=== PATIENT | female | born 1990 | race Caucasian/White ===

== ENCOUNTER 2023-01-10 14:35 | Emergency (ER) | payer BC, SELFPAY ==
[2023-01-10] VITALS (12 sets, daily range): BP systolic 160–209; BP diastolic 117–143; PULSE 83–99; RESP 13–35; TEMP 36.9; O2SAT 96–100
--- NOTE | ~2023-01-10 | XR_ITS ---
EXAMINATION: XR chest 1V portable INDICATION: Hypertension TECHNIQUE: Portable AP chest at 1532 hours COMPARISON: None available FINDINGS: The lungs are free of acute opacities. No pleural effusion or pneumothorax. The cardiomedia stinal silhouette is normal. IMPRESSION: 1. No acute cardiopulmonary abnormality. Reviewed, dictated and finalized at location B.
--- NOTE | 2023-01-10 14:44 | ECG_ITS ---
Measurements Intervals [place] Rate: 98 P: 40 TN: 132 QRS: -7 QRSD: 80 T: 30 QT: 317 QTc: 406 Interpretive Statements SINUS RHYTHM VOLTAGE CRITERIA FOR LVH [MEETS CRITERIA IN ONE OF: R(aVL), S(V1), R(V5), R(V5/V6)+S(V1)] BORDERLINE ECG NO PREVIOUS ECG AVAILABLE FOR COMPARISON Electronically Signed On 01-10-2023 16:12:15 CDT by Isra Rock M.D.
--- NOTE | 2023-01-10 15:09 | ED.GENADULT ---
HPI - General Adult General Chief complaint: Recheck/Abnormal Lab/Rx <Jerry Simons PA-C - Last Filed: 01/10/23 18:50> Stated complaint: htn <SAM Gale Last Filed: 01/10/23 18:50> Time Seen by Provider: 01/10/23 14:55 <SAM Gale Last Filed: 01/10/23 18:50> Source: patient <SAM Gale Last Filed: 01/10/23 18:50> Mode of arrival: ambulatory <SAM Gale Last Filed: 01/10/23 18:50> Limitations: no limitations <SAM Gale Last Filed: 01/10/23 18:50> History of Present Illness HPI narrative: This is a 32-year-old female who presents to the ED for concern of high blood pressure after being referred by her psychiatric provider today. She was there to get assessed for ADHD and they noticed a high blood pressure and a lesion to the eye so they sent her here. Patient states that she has some generalized anxiety going on but denies any acute vision changes, chest pain, shortness of breath, cough. Denies double vision. She reports a little bit of a headache but it feels like her normal headaches that she gets on occasion. Denies any syncope, head injury, numbness, weakness. <Jerry Simons PA-C - Last Filed: 01/10/23 18:50> Related Data Home medications: Home Medications Medication Instructions Recorded Confirmed No Home Medications 01/10/23 01/10/23 <SAM Gale Last Filed: 01/10/23 18:50> Allergies/adverse reactions: Allergies Allergy/AdvReac Type Severity Reaction Status Date / Time No Known Allergies Allergy Verified 01/10/23 16:49 <SAM Gale Last Filed: 01/10/23 18:50> Review of Systems Review of Systems: All systems as dictated in HPI <SAM Gale Last Filed: 01/10/23 18:50> Exam Narrative: GENERAL: Well-appearing, well-nourished, and in no acute distress. HEAD: Normocephalic, atraumatic. EYES: The right eye does have a very small 3 mm hemorrhagic/erythematous appearing lesion to the sclera. Funduscopic exam of the right eye does not reveal any obvious retinopathy or optic disc pathology Left eye is benign. PERRLA and EOMI. ENT: Nares clear, no rhinorrhea or epistaxis. Mucous membranes moist. Oropharynx without tonsillar hypertrophy exudate or other lesions. NECK: Supple. No adenopathy or masses. CHEST: No respiratory distress. Clear to auscultation. No wheezes rales or rhonchi HEART: Regular rate and rhythm. No murmur heard. Normal peripheral pulses. ABDOMEN: Soft, nontender, nondistended, normal active bowel sounds. MSK: Normal range of motion. No edema. SKIN: Warm, dry, no rash. NEURO: Alert and oriented x3. No focal deficits. PSYCH: Normal mood and affect. 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 <Yo Alves MD - Last Filed: 01/10/23 21:47> Vital Signs Vital signs: Vital Signs Temperature 98.4 F 01/10/23 14:37 Pulse Rate 98 01/10/23 14:37 Respiratory Rate 16 01/10/23 14:37 Blood Pressure 182/131 H 01/10/23 14:37 Pulse Oximetry 100 01/10/23 14:37 Oxygen Delivery Room Air 01/10/23 14:37 Temperature 98.4 F 01/10/23 14:37 Pulse Rate 88 01/10/23 17:31 Respiratory Rate 25 H 01/10/23 17:31 Blood Pressure 167/122 H 01/10/23 17:31 Pulse Oximetry 98 01/10/23 17:31 Oxygen Delivery Room Air 01/10/23 14:37 <Jerry Simons PA-C - Last Filed: 01/10/23 18:50> Vital Signs Temperature 98.4 F 01/10/23 14:37 Pulse Rate 98 01/10/23 14:37 Respiratory Rate 16 01/10/23 14:37 Blood Pressure 182/131 H 01/10/23 14:37 Pulse Oximetry 100 01/10/23 14:37 Oxygen Delivery Room Air 01/10/23 14:37 Temperature 98.4 F 01/10/23 14:37 Pulse Rate 88 01/10/23 17:31 Respiratory
[2023-01-10 15:20] LABS: Basophils Percent Auto 0.4 % (0.2-1.2); Eosinophils Absolute Auto 0.1 K/mm3 (0-0.3); Eosinophils Percent Auto 1.4 % (0-4.4); Hematocrit 44.6 % (37.0-47.0); Hemoglobin 14.9 g/dL (12.0-15.0); Immature Granulocyte Absolute 0.05 K/mm3 (0.00-0.031); Immature Granulocyte Percent A 0.5 % (0-0.5); Lymphocytes Absolute Auto 2.81 K/mm3 (0.9-3.2); Lymphocytes Percent Auto 29.9 % (18.3-44.2); Mean Corpuscular HGB Conc 33.4 g/dl (32-36); Mean Corpuscular Hemoglobin 27.9 pg (26-34); Mean Corpuscular Volume 83.4 fl (80-100); Mean Platelet Volume 9.8 fl (7.4-10.4); Monocytes Absolute Auto 0.6 K/mm3 (0.1-0.6); Monocytes Percent Auto 6.8 % (2.6-8.5); Neutrophils Absolute Auto 5.7 K/mm3 (1.3-6.7); Platelet Count Result 291 k/mm3 (150-375); Red Blood Count 5.35 M/mm3 (4.2-5.4); Red Cell Distribution Width 13.1 % (11.5-14.5); White Blood Count 9.4 K/mm3 (4.5-10.0)
[2023-01-10 15:32] LABS: Alanine Aminotransferase 16 U/L (6-35); Albumin Level 4.8 g/dL (3.5-5.1); Alkaline Phosphatase 57 U/L (38-126); Anion Gap 9 mmol/L (8-16); Aspartate Amino Transferase 21 U/L (14-36); Bilirubin,Total 0.7 mg/dL (0.2-1.3); Blood Urea Nitrogen 11 mg/dL (7-17); Calcium 9.7 mg/dL (8.4-10.2); Carbon Dioxide 24 mmol/L (22-30); Chloride 103 mmol/L (98-107); Estimated CRCL calculation 101 ml/min; Estimated Glomerular Filt Rate > 60; Glucose 87 mg/dL (65-110); Lipase 56 U/L (23-300); Potassium 3.9 mmol/L (3.4-5.0); Sodium 136 mmol/L (137-145)
[2023-01-10 15:36] LABS: Partial Thromboplastin Time 28.1 SECONDS (22.3-36.8)
[2023-01-10 15:43] LABS: Troponin I < 0.012 ng/mL (0.000-0.034)
[2023-01-10] MEDS: LABETALOL HCL INJ 100 MG/20 ML VIAL 20 MG IV PUSH (15:58)
[2023-01-10] MEDS: Please add drug allergy info to patient profile. 1 EACH XX (15:58)
== END 2023-01-10 17:53 | disposition home or self-care (01) ==
PROVIDERS: Emergency Medicine; Emergency Provider Physician Assistant; PCP Nurse Practitioner Family
DX: I10 Essential (primary) hypertension (principal); H15.9 Unspecified disorder of sclera; F90.9 Attention-deficit hyperactivity disorder, unspecified type; R94.31 Abnormal electrocardiogram [ECG] [EKG]
CPT/HCPCS: 36415; 71045; 80053; 83690; 84484; 85025; 85610; 85730; 93005; 96374; 99284

== ENCOUNTER 2023-01-27 23:01 | Emergency (ER) | payer BC, SELFPAY ==
--- NOTE | ~2023-01-27 | XR_ITS ---
EXAMINATION: XR chest 2V DATE: 01/27/2023 23:40 INDICATION: Chest pain. TECHNIQUE: Frontal and lateral views of the chest were obtained. COMPARISON: Chest single view 01/10/2023 FINDINGS: There is no pneumonia, pleural effusion, or pneumothorax. The heart size is normal. There i s mild chronic anterior wedging of multiple midthoracic vertebral bodies. IMPRESSION: 1. No acute cardiopulmonary disease. Reviewed, dictated and finalized at location A.
[2023-01-27 23:02] VITALS: BP 193/115; PULSE 90; RESP 18; TEMP 36.8; O2SAT 100
--- NOTE | 2023-01-27 23:02 | ECG_ITS ---
Measurements Intervals [place] Rate: 87 P: 50 PA: 138 QRS: -9 QRSD: 89 T: 45 QT: 339 QTc: 409 Interpretive Statements SINUS RHYTHM DELAYED PRECORDIAL R/S TRANSITION VOLTAGE CRITERIA FOR LVH MINIMAL Q WAVES- HIGH LATERAL LEADS BASELINE WANDER- II, III, AVR, AVF, V3 BORDERLINE ECG COMPARED TO ECG 01/10/2023 14:48:46 NO SIGNIFICANT CHANGES Electronically Signed On 01-28-2023 7:06:05 CDT by Devin Mckeon D.O.
[2023-01-27 23:20] LABS: Basophils Percent Auto 0.4 % (0.2-1.2); Eosinophils Absolute Auto 0.2 K/mm3 (0-0.3); Eosinophils Percent Auto 2.4 % (0-4.4); Hematocrit 39.8 % (37.0-47.0); Hemoglobin 13.1 g/dL (12.0-15.0); Immature Granulocyte Absolute 0.04 K/mm3 (0.00-0.031); Immature Granulocyte Percent A 0.4 % (0-0.5); Lymphocytes Absolute Auto 3.26 K/mm3 (0.9-3.2); Lymphocytes Percent Auto 35.8 % (18.3-44.2); Mean Corpuscular HGB Conc 32.9 g/dl (32-36); Mean Corpuscular Hemoglobin 27.9 pg (26-34); Mean Corpuscular Volume 84.7 fl (80-100); Mean Platelet Volume 9.8 fl (7.4-10.4); Monocytes Absolute Auto 0.6 K/mm3 (0.1-0.6); Monocytes Percent Auto 6.4 % (2.6-8.5); Neutrophils Percent Auto 54.6 % (45.5-73.1); Platelet Count Result 299 k/mm3 (150-375); White Blood Count 9.1 K/mm3 (4.5-10.0)
[2023-01-27 23:30] LABS: Alanine Aminotransferase 13 U/L (6-35); Albumin Level 4.4 g/dL (3.5-5.1); Alkaline Phosphatase 46 U/L (38-126); Anion Gap 9 mmol/L (8-16); Aspartate Amino Transferase 19 U/L (14-36); Bilirubin,Total 0.3 mg/dL (0.2-1.3); Blood Urea Nitrogen 14 mg/dL (7-17); Calcium 9.6 mg/dL (8.4-10.2); Carbon Dioxide 25 mmol/L (22-30); Chloride 104 mmol/L (98-107); Estimated CRCL calculation 89 ml/min; Estimated Glomerular Filt Rate > 60; Glucose 85 mg/dL (65-110); Lipase 162 U/L (23-300); Potassium 3.7 mmol/L (3.4-5.0); Prothrombin Time 13.8 Seconds (11.1-14.7); Sodium 138 mmol/L (137-145)
[2023-01-27 23:31] LABS: Partial Thromboplastin Time 27.9 SECONDS (22.3-36.8)
[2023-01-27 23:41] LABS: Troponin I < 0.012 ng/mL (0.000-0.034)
[2023-01-27 23:54] VITALS: O2SAT 100
[2023-01-28] MEDS: ASPIRIN 81 MG CHEWABLE TABLET 324 MG PO (00:21)
[2023-01-28 00:22] VITALS: PULSE 94
[2023-01-28] MEDS: LABETALOL HCL 100 MG TABLET PO (00:22)
[2023-01-28 01:10] VITALS: BP 165/113; PULSE 77; RESP 15; O2SAT 100
--- NOTE | 2023-01-28 02:20 | ED.CHESTPAIN ---
HPI - Chest Pain General Chief Complaint: Chest Pain Stated Complaint: chest pain Time Seen by Provider: 01/27/23 23:53 History of Present Illness HPI narrative: Patient presents to the emergency department with her significant other with concern for persistent chest pain for the past 5 days. Pain waxes and wanes. Pain starts mid chest radiates up into her neck back and shoulders. Pain not improved with movement or position. Also not worsened by movement when she has the episodes. Nothing is improving the pain. Was seen in the emergency department a couple weeks ago and diagnosed with hypertension. She has not taken her bedtime antihypertensive medication. Patient denies other review of systems including shortness of breath fevers chills and cough. She is very pleasant and her exam is grossly benign. She denies family history of CAD. Also denies personal history of heart problems Related Data Home Medications Medication Instructions Recorded Confirmed No Home Medications 01/10/23 01/10/23 Allergies Allergy/AdvReac Type Severity Reaction Status Date / Time No Known Allergies Allergy Verified 01/10/23 16:49 Review of Systems Review of Systems: Review of systems negative except for what is documented in the HPI Exam Narrative: GENERAL: Well-appearing, well-nourished, and in no acute distress. HEAD: Normocephalic, atraumatic. EYES: PERRLA and EOMI. ENT: Nares clear, no rhinorrhea or epistaxis. Mucous membranes moist. NECK: Supple. CHEST: Clear to auscultation. No respiratory distress. HEART: Regular rate and rhythm. ABDOMEN: Soft, nontender, nondistended. EXTREMITIES: Normal range of motion. No edema. SKIN: Warm, dry, no rash. NEURO: No focal deficits. Alert and oriented x3. PSYCH: Normal mood and affect. Course Course Emergency Course: Patient diagnosed with hypertension a couple weeks ago. It has been under control with home medications. However chest discomfort started a couple days ago has been concerning. Blood pressure in the emergency department improved significantly after taking bedtime dose of labetalol. Diastolic still persistently slightly elevated. However patient is tired and is almost 4:00 in the morning and she will benefit from being at home. She has very close follow-up with her primary care provider. Her PCP is ordering extensive testing due to the patient having hypertension. Patient's heart score is low risk and she young with no family history of CAD. Will DC with further evaluation by primary care provider Reevaluation(s) Reevaluation #1: Labs chest x-ray and EKG grossly unremarkable Vital Signs Vital signs: Vital Signs Temperature 36.8 C 01/27/23 23:02 Pulse Rate 90 01/27/23 23:02 Respiratory Rate 18 01/27/23 23:02 Blood Pressure 193/115 H 01/27/23 23:02 Pulse Oximetry 100 01/27/23 23:02 Oxygen Delivery Room Air 01/27/23 23:02 Temperature 36.8 C 01/27/23 23:02 Pulse Rate 77 01/28/23 01:10 Respiratory Rate 15 01/28/23 01:10 Blood Pressure 165/113 H 01/28/23 01:10 Pulse Oximetry 100 01/28/23 01:10 Oxygen Delivery Room Air 01/27/23 23:54 MDM - Chest Pain MDM Narrative Medical decision making narrative: Differential diagnosis includes but not limited to musculoskeletal pain, anxiety, CAD Blood pressure elevated but much improved after labetalol. Lab Data 01/27/23 23:14 01/27/23 23:14 Labs: Lab Results 01/27/23 01/28/23 Range/Units 23:14 02:27 WBC 9.1 (4.5-10.0) K/mm3 RBC 4.70 (4.2-5.4) M/mm3 Hgb 13.1 (12.0-15.0) g/dL Hct 39.8 (37.0-47.0) % MCV 84.7 (80-100) fl MCH 27.9 (26-34) pg MCHC 32.9 (32-36) g/dl RDW 13.0 (11.5-14.5) % Plt Count 299 (150-375) k/mm3 MPV 9.8 (7.4-10.4) fl Immature Gran % (Auto) 0.4 (0-0.5) % Neut % (Auto) 54.6 (45.5-73.1) % Lymph % (Auto) 35.8 (18.3-44.2) % Reeves % (Auto) 6.4 (2.6-8.5) % Eos % (Au
[2023-01-28] MEDS: ACETAMINOPHEN 325 MG TABLET 650 MG PO (02:42)
[2023-01-28 02:53] LABS: Troponin I < 0.012 ng/mL (0.000-0.034)
[2023-01-28 03:50] VITALS: BP 150/113; PULSE 100; RESP 17; O2SAT 100
== END 2023-01-28 03:50 | disposition home or self-care (01) ==
PROVIDERS: Emergency Provider Emergency Medicine; PCP Nurse Practitioner Family
DX: R07.9 Chest pain, unspecified (principal); I10 Essential (primary) hypertension
CPT/HCPCS: 36415; 71046; 80053; 83690; 84484; 85025; 85610; 85730; 93005; 99284; A9270